=== PATIENT | male | born 1945 | race Caucasian/White ===

== ENCOUNTER → 2018-02-13 | Day surgery (SDC) | payer MEDICARE, OTHER ==
[~2018-02-13] MED LIST: ALBUTEROL SULFATE 2.5 MG/3 ML NEBU. NEB PRN; AMLO5TAB7 PO; ASPI81TA50 PO; ATEN50TA PO; ATOR10TA60 PO; ATROPINE 0.5 MG/5 ML DISP.SYRIN. IV PRN; CETI10TA22 PO; FENO150C PO; FEXO180T16 PO; FLUT9.9S NS; IV RINGERS SOLUTION,LACTATED 1,000 ML IV SCH; LIDOCAINE 2% PF Vial for OR 5 ML VIAL. ONE; LISI40TA PO; MAGN400C PO; METF10007 PO; NALOXONE 0.4 MG/ML VIAL. IV PRN; OMEP20CA9 PO; ONDANSETRON PF 4 MG/2 ML VIAL. IV PRN; PROPOFOL 40 ML IV ONE; SERT50TA PO; TAMS0.4C97 PO; TRAZ-85 PO
[2018-02-13 09:29] VITALS: BP 131/78
== END | disposition home or self-care (01) ==
LOC: SURG 07:34
PROVIDERS: ATTEND Internal Medicine Gastroenterology
DX: Z12.11 Encounter for screening for malignant neoplasm of colon (principal); K57.30 Diverticulosis of large intestine without perforation or abscess without bleeding; K63.5 Polyp of colon; I10 Essential (primary) hypertension; E11.9 Type 2 diabetes mellitus without complications; K21.9 Gastro-esophageal reflux disease without esophagitis; F32.9 Major depressive disorder, single episode, unspecified; F41.9 Anxiety disorder, unspecified; Z86.010 Personal history of colon polyps; Z85.828 Personal history of other malignant neoplasm of skin; Z98.890 Other specified postprocedural states; Z79.899 Other long term (current) drug therapy; Z79.82 Long term (current) use of aspirin; Z79.84 Long term (current) use of oral hypoglycemic drugs; E78.00 Pure hypercholesterolemia, unspecified; N40.0 Benign prostatic hyperplasia without lower urinary tract symptoms; F17.210 Nicotine dependence, cigarettes, uncomplicated
CPT/HCPCS: 45385; 82947; J2704; J7120; G0105; J2001

== ENCOUNTER → 2018-02-22 | Outpatient (CLI) | payer MEDICARE, OTHER ==
[2018-02-13 09:29] VITALS: BP 131/78
[~2018-02-22] MED LIST changes: -ALBUTEROL SULFATE 2.5 MG/3 ML NEBU. NEB PRN; -ATROPINE 0.5 MG/5 ML DISP.SYRIN. IV PRN; -IV RINGERS SOLUTION,LACTATED 1,000 ML IV SCH; -LIDOCAINE 2% PF Vial for OR 5 ML VIAL. ONE; -NALOXONE 0.4 MG/ML VIAL. IV PRN; -ONDANSETRON PF 4 MG/2 ML VIAL. IV PRN; -PROPOFOL 40 ML IV ONE
--- NOTE | 2018-02-22 17:53 | RAD ---
CT study of the maxillofacial bones without contrast Clinical indications: Chronic sinusitis. History of sinus surgery. TECHNIQUE: Noncontrast helical CT scanning of the paranasal sinuses was performed. FINDINGS: There is a small air-fluid level within the left maxillary sinus consistent with acute maxillary sinusitis. There is mild mucosal thickening of the floor of both maxillary sinuses measuring a few millimeters in thickness. No opacification of the ethmoid sinuses or frontal sinuses or sphenoid sinuses is seen. No lytic process is evident. There is nasal septal deviation with the convexity pointed towards the left side. There is moderate mucosal thickening of the inferior turbinates bilaterally and the right middle turbinate. No soft tissue mass or polyp of the nasal passageway is seen. The adenoids are not abnormally thickened. IMPRESSION: Acute left maxillary sinusitis. Electronically signed by: Rajiv Lira MD (02/22/2018 5:49 PM) [place] [id number]
== END | disposition home or self-care (01) ==
LOC: CT 10:26
PROVIDERS: ATTEND Otolaryngology
DX: J01.01 Acute recurrent maxillary sinusitis (principal); J34.2 Deviated nasal septum
CPT/HCPCS: 70486

== ENCOUNTER 2018-08-15 06:41 | Emergency (ER) | payer MEDICARE, OTHER ==
[~2018-08-15 06:41] MED LIST changes: +AMLO5TAB10 PO; -AMLO5TAB7 PO; +TRAZ-120 PO; -TRAZ-85 PO
--- NOTE | 2018-08-15 06:57 | PHYS DOC ---
Adult General Chief Complaint Chief Complaint: urinary retention HPI HPI 73-year-old male presents with urinary retention. The patient had a steroid injection at Dr. Dumont's office last evening and he has not urinated since that time. It's been about 11 hours. The patient does not have abdominal pain. He does not feel the urge to urinate. He is just concerned that is been a long time since he urinated once make sure there is nothing wrong. He denies fever or chills. He has no current pain. Review of Systems Review of Systems Constitutional: Denies fever or chills [] Eyes: Denies change in visual acuity, redness, or eye pain [] HENT: Denies nasal congestion or sore throat [] Respiratory: Denies cough or shortness of breath [] Cardiovascular: No additional information not addressed in HPI [] GI: Denies abdominal pain, nausea, vomiting, bloody stools or diarrhea [] : Urinary retention[] Musculoskeletal: Denies back pain or joint pain [] Integument: Denies rash or skin lesions [] Neurologic: Denies headache, focal weakness or sensory changes [] Endocrine: Denies polyuria or polydipsia [] All other systems were reviewed and found to be within normal limits, except as documented in this note. Allergies Allergies Allergies Coded Allergies Type Severity Reaction Last Updated Verified No Known Drug Allergies 02/13/18 No Physical Exam Physical Exam Constitutional: Well developed, well nourished, no acute distress, non-toxic appearance. [] HENT: Normocephalic, atraumatic, bilateral external ears normal, oropharynx moist, no oral exudates, nose normal. [] Eyes: PERRLA, EOMI, conjunctiva normal, no discharge. [] Neck: Normal range of motion, no tenderness, supple, no stridor. [] Cardiovascular:Heart rate regular rhythm, no murmur [] Lungs & Thorax: Bilateral breath sounds clear to auscultation [] Abdomen: Bowel sounds normal, soft, no tenderness, no masses, no pulsatile masses. [] Skin: Warm, dry, no erythema, no rash. [] Back: No tenderness, no CVA tenderness. [] Extremities: No tenderness, no cyanosis, no clubbing, ROM intact, no edema. [] Neurologic: Alert and oriented X 3, normal motor function, normal sensory function, no focal deficits noted. [] Psychologic: Affect normal, judgement normal, mood normal. [] EKG EKG [] Radiology/Procedures Radiology/Procedures [] Course & Med Decision Making Course & Med Decision Making Pertinent Labs and Imaging studies reviewed. (See chart for details) The patient's bladder scan was negative for urine. We double checked the bladder scanner with a known patient and it appeared to be reading accurately. I offered the patient IV fluids and waiting to see if he was able to urinate or returning home for oral rehydration. He has elected to go home. If he has any more trouble he will contact his PCP or return to the emergency room. He is stable for discharge at this time. [] Dragon Disclaimer Dragon Disclaimer This electronic medical record was generated, in whole or in part, using a voice recognition dictation system. Departure Departure: Impression: Primary Impression: Dehydration Disposition: 01 HOME, SELF-CARE Condition: STABLE Referrals: JANIE DUMONT (PCP) Patient Instructions: Dehydration, Adult, [id number], Urinary Retention, Acute, Male, Ieud-ls-Gakl JOSSELINE WAGGONER DO August 15, 2018 06:57
[2018-08-15 07:41] VITALS: BP 127/67
== END 2018-08-15 07:40 | disposition home or self-care (01) ==
LOC: ER 06:41
DX: E86.0 Dehydration (principal)
CPT/HCPCS: 99284

== ENCOUNTER → 2019-01-23 | Outpatient (CLI) | payer MEDICARE, OTHER ==
[~2019-01-23] MED LIST changes: +OMEP20CA10 PO; -OMEP20CA9 PO
--- NOTE | 2019-01-23 10:15 | RAD ---
EXAM: Chest, 2 views. HISTORY: Cough. COMPARISON: None. FINDINGS: 2 views of chest are obtained. There is no infiltrate, pleural effusion or pneumothorax. There are circumscribed nodules overlying the left lower lobe, possibly representing granulomas. The heart is normal in size. IMPRESSION: 1. No acute pulmonary finding. 2. Small nodular opacities overlying the left lower lobe, possibly due to granulomas. Given the absence of prior studies to confirm stability, short-term radiographic or CT follow-up is recommended to exclude an underlying noncalcified nodule in this location. Electronically signed by: Roxana Martin MD (01/23/2019 10:12 AM) [place] [id number]
== END | disposition home or self-care (01) ==
LOC: PMG 09:33
PROVIDERS: ATTEND Physician Assistant
DX: J98.4 Other disorders of lung (principal)
CPT/HCPCS: 71046

== ENCOUNTER → 2019-01-31 | Outpatient (CLI) | payer MEDICARE, OTHER ==
--- NOTE | 2019-01-31 17:11 | RAD ---
Examination: CT CHEST WO CONTRAST History: Pulmonary nodule Comparison/Correlation: 01/23/2019 two-view chest x-ray exam Findings: Axial images of the chest were obtained without contrast. Sagittal and coronal reformatted images were provided. Mild centrilobular emphysematous involvement of the lung briceno noted. No pleural or pericardial effusion. No enlarged thoracic lymph nodes. Thoracic aorta is grossly unremarkable in morphology. No suspicious pulmonary nodules. There are 2 sclerotic foci involving the anterior aspect of the left seventh rib and these are of indeterminate significance measuring up to 0.8 cm diameter. No cortical disruption or expansile appearance. Partially visualized upper abdomen is unremarkable. Impression: No suspicious pulmonary nodule or infiltrate. Findings on chest x-ray exam corresponding to the left nipple shadow and the sclerotic densities involving the left seventh rib anteriorly. No other sclerotic lesions identified. The sclerotic densities are of indeterminate significance. Correlate with prior exams if available and clinically in determining interval follow-up. PQRS Compliance Statement: One or more of the following individualized dose reduction techniques were utilized for this examination: 1. Automated exposure control 2. Adjustment of the mA and/or kV according to patient size 3. Use of iterative reconstruction technique Electronically signed by: Rafi Yee MD (01/31/2019 5:08 PM) [facility]
--- NOTE | 2019-02-01 10:45 | RAD ---
Carotid doppler ultrasound History: Hypertension, dizziness, smoker Multiple grayscale, color, and duplex spectral analysis waveform sonographic images were acquired of the carotid, subclavian, and vertebral arteries. Comparison: None Findings: RIGHT: PSV cm/sec EDV cm/sec Common carotid artery 53 10 Maximal internal carotid artery 64 15 External carotid artery 104 Vertebral artery 42 ICA/CCA ratio 1.21 LEFT: PSV cm/sec EDV cm/sec Common carotid artery 70 17 Maximum internal carotid artery 93 21 External carotid artery 92 Vertebral artery 32 ICA/CCA ratio 1.33 Velocities used to determine stenosis are known to correlate with NASCET angiographic criteria. There is antegrade flow in the bilateral vertebral arteries. There is minimal plaque of the right carotid bulb, greater degree of [id number] plaque of the left carotid bulb. No significant stenosis is demonstrated on grayscale or color images. Impression: 1. There is no evidence of a hemodynamically significant stenosis. There is plaque of the carotid bulbs greater on the left. Electronically signed by: Slick Guzman MD (02/01/2019 10:42 AM) [id number]
== END | disposition home or self-care (01) ==
LOC: US 14:03
PROVIDERS: ATTEND Physician Assistant
DX: J43.2 Centrilobular emphysema (principal); I65.23 Occlusion and stenosis of bilateral carotid arteries
CPT/HCPCS: 71250; 93880

== ENCOUNTER → 2019-08-13 | Outpatient (CLI) | payer MEDICARE, OTHER ==
[~2019-08-13] MED LIST changes: -CETI10TA22 PO; +CETI10TA24 PO; -OMEP20CA10 PO; +OMEP20CA16 PO
--- NOTE | 2019-08-13 14:39 | RAD ---
Exam:Right ribs with PA chest Date: 08/13/2019 10:51 AM Comparison: No prior Indication: Right rib pain-3 weeks Findings/ Impression: The heart is not enlarged. Mediastinal and hilar contours are normal. Mild patchy opacities in the infrahilar right lung may represent atelectasis or infiltrate. Calcified granuloma peripheral left lower lung. No pleural effusion or pneumothorax. AP, Oblique and Spot images of the right ribs are negative for acute displaced rib fracture. Negative focal pleural elevation. Symmetrical intercostal spacing. It is of note that an acute non-displaced rib fracture can be in-apparent on initial post-trauma imaging. Electronically signed by: Brendan Haynes MD (08/13/2019 2:37 PM) [id number]
== END ==
LOC: PMG 10:44
PROVIDERS: ATTEND Physician Assistant
DX: R07.81 Pleurodynia (principal)
CPT/HCPCS: 71101

== ENCOUNTER → 2019-10-21 | Outpatient (CLI) | payer MEDICARE, OTHER ==
--- NOTE | 2019-10-21 08:57 | RAD ---
Right knee 4 views INDICATION: Right knee pain FINDINGS: Anatomic alignment. No fracture or aggressive osseous lesions. Undulation to the articular surface of the medial femoral condyle and osteophytic spurring in all 3 compartments is consistent with tricompartmental degenerative change. No fracture or aggressive osseous lesions. Moderate joint effusion is present. IMPRESSION: Tricompartmental degenerative change in the right knee. No fracture or malalignment. Electronically signed by: Radha Lujan MD (10/21/2019 8:54 AM) [id number]
== END | disposition home or self-care (01) ==
LOC: RAD 08:31
PROVIDERS: ATTEND Anesthesiology Pain Medicine
DX: M17.11 Unilateral primary osteoarthritis, right knee (principal); M25.461 Effusion, right knee; M76.9 Unspecified enthesopathy, lower limb, excluding foot
CPT/HCPCS: 73564

== ENCOUNTER → 2020-09-01 | Outpatient (CLI) | payer MEDICARE, OTHER ==
[~2020-09-01] MED LIST changes: +AMLO-186 PO; -AMLO5TAB10 PO; -CETI10TA24 PO; +CETI10TA74 PO; -LISI40TA PO; +LISI40TA6 PO
--- NOTE | 2020-09-01 14:54 | RAD ---
EXAM: 3 views nasal bones DATE: 09/01/2020 9:59 AM INDICATION: Reason: ARTIFICIAL NASAL SEPTUM X 2 YEARS, FEELS LIKE ITS COMING OUT / Spl. Instructions: / History: . COMPARISON: No Prior FINDINGS/ IMPRESSION: No acute fracture or dislocation. Radiopaque density projecting of the nasal septum, likely postsurgi rocael. Paranasal sinuses are grossly clear. Electronically signed by: Brendan Haynes MD (09/01/2020 2:51 PM) GUY
== END ==
LOC: RAD 09:46
PROVIDERS: ATTEND Physician Assistant
DX: R09.81 Nasal congestion (principal); J34.89 Other specified disorders of nose and nasal sinuses
CPT/HCPCS: 70160

== ENCOUNTER 2020-10-09 08:00 | Observation (INO) | payer MEDICARE, OTHER ==
[~2020-10-09] VITALS: Ht 165.1 cm; Wt 99.4 kg
--- NOTE | 2020-10-09 08:43 | PHYS DOC ---
Past History Past Medical History: Diabetes, GERD, High Cholesterol, Hypertension Additional Past Medical Histor: caratid blockages Past Surgical History: Other Additional Past Surgical Histo: nasal surgery x 3 Alcohol Use: None Drug Use: None General Adult EDM: Chief Complaint: MULTIPLE COMPLAINTS HPI: HPI: Patient is a 75-year-old male coming in for diarrhea and concerns for dehydration. Patient states that this morning he had some nausea and dry heaving. Has had 4 watery bowel movements today. Patient is currently taking amoxicillin after a tooth extraction and dry sockets from last week. Patient states he was also on antibiotics prior to that for a nasal button, does not member the name of the antibiotics. Has had his Covid vaccines. Denies any cough or fevers. Review of Systems: Review of Systems: All other systems within normal limits except for as noted in the HPI Allergies: Allergies: Allergies Coded Allergies Type Severity Reaction Last Updated Verified No Known Drug Allergies 10/09/20 No Physical Exam: PE: Constitutional: Well developed, well nourished, no acute distress, non-toxic appearance. [] HENT: Normocephalic, atraumatic, bilateral external ears normal, nose normal. [] Eyes: PERRLA, conjunctiva normal, no discharge. [] Neck: No rigidity, supple, no stridor. [] Cardiovascular: Regular rate and rhythm, brisk cap refill [] Lungs & Thorax: Non labored symmetric respirations, no tachypnea or respiratory distress [] Abdomen: Soft, nondistended. Skin: Warm, dry, no erythema, no rash. [] Back: Unremarkable Extremities: No deformities, range of motion grossly intact, no lower extremity edema [] Neurologic: Alert and oriented X 3, no focal deficits noted. [] Psychologic: Affect normal, judgement normal, mood normal. [] Current Patient Data: Vital Signs: Vital Signs Date Time Temp Pulse Resp B/P (MAP) Pulse Ox O2 Delivery O2 Flow Rate FiO2 10/09/20 08:15 97.6 80 14 137/78 97 Room Air EKG: EKG: [] Radiology/Procedures: Radiology/Procedures: [] Heart Score: C/O Chest Pain: No Risk Factors: Risk Factors: DM, Current or recent (<one month) smoker, HTN, HLP, family history of CAD, obesity. Risk Scores: Score 0 - 3: 2.5% MACE over next 6 weeks - Discharge Home Score 4 - 6: 20.3% MACE over next 6 weeks - Admit for Clinical Observation Score 7 - 10: 72.7% MACE over next 6 weeks - Early Invasive Strategies Course & Med Decision Making: Course & Med Decision Making Pertinent Labs and Imaging studies reviewed. (See chart for details) [] Dragon Disclaimer: Dragon Disclaimer: This electronic medical record was generated, in whole or in part, using a voice recognition dictation system. Departure Departure: Impression: Primary Impression: Dehydration Additional Impressions: Diarrhea Hypomagnesemia Disposition: ADMITTED INPATIENT Admitting Physician: Andrade Baez Condition: STABLE Referrals: JANIE DUMONT (PCP) SERGE MONTALVO MD Oct 09, 2020 08:43
[2020-10-09] MEDS ORDERED: IV NORMAL SALINE 1,000ML 1,000 ML IV ONE (08:45)
[2020-10-09] MEDS ORDERED: ONDANSETRON PF 4 MG/2 ML VIAL. IVP ONE (08:45)
[2020-10-09 09:10] LABS: BASO % 1 % (0-3); EOS # 0.2 x10^3/uL (0.0-0.7); EOS % 3 % (0-3); HEMATOCRIT 41.6 % (39.0-53.0); HEMOGLOBIN 14.4 g/dL (13.0-17.5); LYMPH # 1.9 x10^3/uL (1.0-4.8); LYMPH % 25 % (24-48); MEAN CORPUSCULAR HEMOGLOBIN 32 pg (25-35); MEAN CORPUSCULAR HGB CONC 35 g/dL (31-37); MEAN CORPUSCULAR VOLUME 93 fL (79-100); MONO # 0.5 x10^3/uL (0.0-1.1); MONO % 6 % (0-9); NEUT # 4.8 x10^3uL (1.8-7.7); NEUT % 65 % (31-73); PLATELET COUNT 264 x10^3/uL (140-400); RED BLOOD COUNT 4.48 x10^6/uL (4.30-5.70); RED CELL DISTRIBUTION WIDTH 13.7 % (11.5-14.5); WHITE BLOOD COUNT 7.4 x10^3/uL (4.0-11.0)
[2020-10-09 09:17] LABS: CALCIUM 8.7 mg/dL (8.5-10.1); CREATININE 1.2 mg/dL (0.7-1.3); GFR 58.9; POTASSIUM 4.4 mmol/L (3.5-5.1)
[2020-10-09 09:29] LABS: ALBUMIN/GLOBULIN RATIO 1.2 (1.0-1.7); MAGNESIUM 0.9 mg/dL (1.8-2.4); TOTAL BILIRUBIN 0.6 mg/dL (0.2-1.0); TOTAL PROTEIN 7.3 g/dL (6.4-8.2)
[2020-10-09] MEDS ORDERED: MAGNESIUM SULFATE 2GM 50 ML IV ONE ×2 (09:45)
[2020-10-09 10:07] LABS: BILIRUBIN,URINE NEG (NEG); CLARITY,URINE CLEAR; COLOR,URINE YELLOW; GLUCOSE,URINE NEG (NEG); NITRITE,URINE NEG (NEG); UROBILINOGEN,URINE 0.2 mg/dL (0.2 mg/dL)
[2020-10-09 10:08] LABS: BACTERIA,URINE 0 /HPF (0-FEW); RBC,URINE 0 /HPF (0-2); WBC,URINE 0 /HPF (0-4)
[2020-10-09] MEDS ORDERED: ONDANSETRON PF 4 MG/2 ML VIAL. IVP PRN (10:15)
[2020-10-09] MEDS: IV NORMAL SALINE 1,000ML 1,000 ML IV SCH ×2 (11:00→23:35)
[2020-10-09 11:06] VITALS: BP 164/79
[2020-10-09] MEDS ORDERED: MELO15TA23 PO (11:21)
[2020-10-09] MEDS ORDERED: GABA-586 PO (11:21)
[2020-10-09] MEDS ORDERED: RABE20TA18 PO (11:22)
[2020-10-09] MEDS ORDERED: AMOXICILLIN (11:23)
--- NOTE | 2020-10-09 11:55 | HP ---
ADMIT DATE: 10/09/2020 ATTENDING PHYSICIAN: Dr. Baez. CHIEF COMPLAINT: Weakness. HISTORY OF PRESENT ILLNESS: The patient is a 75-year-old gentleman admitted through the ED. He has had several episodes of diarrhea following a round of amoxicillin for recent tooth extraction. Clinically, he appears dehydrated. He had a low magnesium, which was replaced. This is a chronic problem. The majority of magnesium is bound and therefore, the serum magnesium levels are not that accurate. In any event, we will continue some of his home meds. He is diabetic. He has hypertension. ALLERGIES: He has no known drug allergies. CURRENT MEDICATIONS: Include fenofibrate, Lipitor, atenolol 50 mg daily, amlodipine, lisinopril, aspirin, Zoloft, trazodone, fluticasone, magnesium oxide, omeprazole, and metformin. SOCIAL HISTORY: He is a smoker, pack of cigarettes daily. Denies any alcohol use. 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 He lives independent, 3 children are grown. REVIEW OF SYSTEMS: Significant for the diarrhea following antibiotic therapy from his dentist. No recent travel, fevers, chills, palpitations. All other systems reviewed and turned to be negative. PHYSICAL EXAMINATION: GENERAL: When I saw him, this is a pleasant gentleman who appears younger than his stated age. INITIAL VITAL SIGNS: Showed a blood pressure 137/78, pulse is 80. He is afebrile. Oxygen saturation 97% on room air. HEENT: Head is without trauma. Pupils are reactive. Sclerae nonicteric. Oropharynx is clear. NECK: Supple. No bruits identified. LUNGS: Clear. CARDIOVASCULAR: Regular heart tones. No gallops. ABDOMEN: Soft. EXTREMITIES: Show no edema. NEUROLOGIC: Focally intact. SKIN: Warm and dry. PERTINENT LABORATORY STUDIES: Hemoglobin normal at 14.4 g/dL with a white count of 7400. Sodium 134 mEq, potassium 4.4, creatinine is 1.2 mg/dL. Nonfasting blood sugar 134. Transaminases were normal. ASSESSMENT: 1. A 75-year-old gentleman with symptomatic dehydration related to gastrointestinal losses from diarrhea. 2. Essential hypertension. 3. Chronic obstructive pulmonary disease, continued tobacco use. 4. Chronic hypomagnesemia, on replacement. PLAN: 1. Observation status. 2. Gentle IV hydration. 3. We will hold off some of his blood pressure meds. 4. Diet as tolerated. 5. If symptoms improve, he can be discharged tomorrow. ANN DR: Zaki TID: [id number] CC: GENNARO ALDRIDGE
[2020-10-09] MEDS: M PO SCH ×2 (12:30→16:51)
[2020-10-09 14:59] VITALS: BP 132/71
[2020-10-09 19:45] VITALS: BP 146/77
[2020-10-09 23:27] VITALS: BP 154/79
[2020-10-10 07:10] VITALS: BP 156/74
[2020-10-10] MEDS ORDERED: PANTOPRAZOLE 40 MG TABLET. PO SCH (07:30)
[2020-10-10] MEDS: M PO SCH (08:39)
[2020-10-10 08:40] VITALS: BP 156/74
[2020-10-10] MEDS ORDERED: SERTRALINE 100 MG TABLET. PO SCH (09:00)
[2020-10-10] MEDS ORDERED: ATENOLOL 50 MG TABLET PO SCH (09:00)
[2020-10-10] MEDS ORDERED: TAMSULOSIN 0.4 MG CAP.ER.24H. PO SCH (09:00)
[2020-10-10] MEDS ORDERED: MAGNESIUM OXIDE 400 MG TABLET PO SCH (09:00)
[2020-10-10] MEDS ORDERED: LISINOPRIL 20 MG TABLET PO SCH (09:00)
--- NOTE | 2020-10-10 12:19 | DS ---
DATE OF DISCHARGE: 10/10/2020 ATTENDING PHYSICIAN: Dr. Baez. FINAL DISCHARGE DIAGNOSES: 1. Mild dehydration. 2. Gastrointestinal losses from diarrhea, self-limiting, resolved. 3. Essential hypertension. 4. Chronic obstructive pulmonary disease with continued tobacco use. 5. Chronic hypomagnesemia, on replacement. HISTORY AND PHYSICAL: This pleasant 75-year-old gentleman had some recent amoxicillin following dental procedure, where he had some diarrhea. It did not appear infectious. He was admitted with mild dehydration. OBJECTIVE FINDINGS AND PHYSICAL EXAMINATION: Please see the dictated note. PERTINENT LABORATORY AND X-RAY STUDIES: Admission hemoglobin was 14.4 g/dL, white count 7400. Electrolytes within normal range. Nonfasting blood sugar 134, creatinine 1.2 mg percent. Magnesium is still low, but not symptomatic. I explained to him the majority of magnesium is bound to protein and therefore serum levels are not accurate. Urinalysis was clear. COURSE IN THE HOSPITAL: The patient was admitted. He was started on gentle IV hydration. Some home meds were continued. He did well. By the next hospital day, vital signs were stable. Diarrhea resolved. He was back to baseline. He was ready for discharge. At this time, I strongly recommended that he quit smoking and if he does use nicotine, he were to consider e-cigarettes. Home meds are unchanged. He should continue his amlodipine, atenolol, Lipitor, fenofibrate, lisinopril, metformin, magnesium, Aciphex, Zoloft, Flomax and trazodone. For now, I recommend he stop the Neurontin and meloxicam as they have significant side effects. He will follow up with Vic Jacobo as scheduled. The patient was then discharged from our hospital in stable condition with explicit drug and followup care. WILLIAM DR: Zaki TID: [id number] CC: GENNARO ALDRIDGE
--- NOTE | 2020-10-12 13:30 | EKG ---
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
== END 2020-10-10 09:40 | disposition home or self-care (01) ==
LOC: ER 08:00 → 1 SOUTH 10:03 → INTOOBSV 10:03
PROVIDERS: ADMIT Hospitalist; ATTEND Hospitalist
DX: E86.0 Dehydration (principal); E83.42 Hypomagnesemia; R19.7 Diarrhea, unspecified; I10 Essential (primary) hypertension; E11.9 Type 2 diabetes mellitus without complications; E78.00 Pure hypercholesterolemia, unspecified; J44.9 Chronic obstructive pulmonary disease, unspecified; K21.9 Gastro-esophageal reflux disease without esophagitis; F17.200 Nicotine dependence, unspecified, uncomplicated; Z79.01 Long term (current) use of anticoagulants; Z71.6 Tobacco abuse counseling
CPT/HCPCS: 36415; 80053; 81001; 83690; 83735; 83880; 84100; 85025; 93005; 96361; 96365; 96366; 96375; 99284; 99406; G0378; J2405; J3475; J7030; 96374; G0379; 99285-25

== ENCOUNTER → 2020-12-17 | Outpatient (CLI) | payer MEDICARE, OTHER ==
[~2020-12-17] MED LIST changes: +AMOXICILLIN; +GABA-586 PO; +MELO15TA23 PO; +RABE20TA18 PO
--- NOTE | 2020-12-18 08:54 | RAD ---
EXAM: Bilateral carotid duplex with waveform analysis. CLINICAL HISTORY: Reason: ATHEROSCLEROSIS, HTN, HX OF SMOKING, DIZZINESS, LT NECK PAIN, PICKETT / Spl. Ins tructions: / History: . . TECHNIQUE: Longitudinal and transverse sonographic images of the bilateral carotid arteries was perfo rmed utilizing grayscale, color and spectral Doppler techniques. COMPARISON: Carotid ultrasound 01/31/2019 FINDINGS: There are calcifications in the left carotid bulb and proximal internal carotid artery. Vertebrals: Antegrade flow bilaterally. Right: PSV CCA (cm/s): 75 PSV ICA (cm/s): 68 EDV ICA (cm/s): 20 PSV ECA (cm/s): 81 ICA/CCA Ratio: 0.9 Left: PSV CCA (cm/s): 104 PSV ICA (cm/s): 89 EDV ICA (cm/s): 20 PSV ECA (cm/s): 84 ICA/CCA Ratio: 1.1 IMPRESSION: Less than 50 percent stenosis of the internal carotid arteries bilaterally. Consensus Panel Jackson-scale and Doppler US Criteria for Diagnosis of ICA Stenosis Degree of Stenosis (%) ICA PSV (Cm/sec) Plaque Estimate (%)* Normal <125 None <50 <125 <50 50-69 125-230 >50 >70 but < near occlusion >230 >50 Near occlusion High, low, or undetectable Visible Total occlusion Undetectable Visible, no detectable lumen *Plaque estimate (diameter reduction) with jackson-scale and color Doppler US Degree of Stenosis (%) ICA/CCA PSV Ratio ICA EDV (cm/sec) Normal <2.0 <40 <50 <2.0 <40 50-69 2.0-4.0 40-100 >70 but < near occlusion >4.0 >100 Near occlusion Variable Variable Total occlusion Not applicable Not applicable Electronically signed by: Pastora Smiley MD (12/18/2020 8:51 AM) [id number]
== END ==
LOC: US 12:40
PROVIDERS: ATTEND Physician Assistant
DX: I65.23 Occlusion and stenosis of bilateral carotid arteries (principal)
CPT/HCPCS: 93880